=== PATIENT | female | born 1965 | race African-American/Black ===

== ENCOUNTER 2018-01-07 21:01 | Emergency (ER) | payer BC ==
[~2018-01-07] VITALS: Ht 165.1 cm; Wt 81.1 kg
[2018-01-07] MEDS ORDERED: KENALOG,ARISTOC80 GM TP (22:14)
[2018-01-07] MEDS ORDERED: MEDROL DOSEPAK4 MG PO (22:14)
[2018-01-07 22:24] VITALS: BP 135/57
== END 2018-01-07 22:24 | disposition home or self-care (01) ==
LOC: EME 21:01
DX: L20.9 Atopic dermatitis, unspecified (principal); Z86.14 Personal history of Methicillin resistant Staphylococcus aureus infection
CPT/HCPCS: 99281; 99283; J7512

== ENCOUNTER 2018-06-14 12:47 | Emergency (ER) | payer BC ==
[~2018-06-14] VITALS: Ht 165.1 cm; Wt 75.0 kg
[~2018-06-14 12:47] MED LIST: KENALOG,ARISTOC80 GM TP; MEDROL DOSEPAK4 MG PO
[2018-06-14 13:38] LABS: HEMATOCRIT 33.4 % (36.0-46.0); HEMOGLOBIN 11.4 G/DL (11.9-15.5); MCH 31.2 PG (29.0-34.0); MCHC 34.1 G/DL (30.0-36.0); MCV 91.5 FL (83-99); PLATELET COUNT 169 K/uL (156-360); RBC DIS.WIDTH-CV 12.1 % (11.8-14.6); RBC DIS.WIDTH-SD 40.7 % (39-53); RED BLOOD COUNT 3.65 M/uL (3.80-5.20); WHITE BLOOD COUNT 8.2 K/uL (4.1-10.2)
[2018-06-14 13:48] LABS: CHLORIDE 108 mEq/L (99-109)
[2018-06-14 13:49] LABS: POTASSIUM 3.5 mEq/L (3.7-5.4); SODIUM 142 mEq/L (136-147)
[2018-06-14 13:50] LABS: GLUCOSE 91 mg/dL (70-99)
[2018-06-14 13:54] LABS: CREATININE 0.9 mg/dL (0.6-1.3); GFR ESTIMATE (CALCULATED) > 59 mL/min/
[2018-06-14 13:55] LABS: UREA NITROGEN (BUN) 11 mg/dL (9-23)
[2018-06-14 13:58] LABS: TROP-I INTERPRETATION NEGATIVE; TROPONIN-I < 0.01 ng/mL (0.0-0.30)
[2018-06-14 15:55] LABS: TROP-I INTERPRETATION NEGATIVE; TROPONIN-I < 0.01 ng/mL (0.0-0.30)
[2018-06-14] MEDS ORDERED: TRIDERM28.4 GM TP (16:15)
[2018-06-14 16:35] VITALS: BP 116/62
== END 2018-06-14 16:36 | disposition home or self-care (01) ==
LOC: EME 12:47
PROVIDERS: Nurse Practitioner Family
DX: R07.89 Other chest pain (principal); R20.2 Paresthesia of skin; M79.601 Pain in right arm; M79.602 Pain in left arm; L30.9 Dermatitis, unspecified; R00.2 Palpitations; R19.5 Other fecal abnormalities; R53.1 Weakness; M54.6 Pain in thoracic spine; M54.2 Cervicalgia; Z86.14 Personal history of Methicillin resistant Staphylococcus aureus infection; Z82.49 Family history of ischemic heart disease and other diseases of the circulatory system; Z83.3 Family history of diabetes mellitus
CPT/HCPCS: 71046; 80048; 84484; 85027; 93005; 99281; 99284